=== PATIENT | male | born 1970 | race Caucasian/White ===

== ENCOUNTER 2016-09-02 11:12 | Outpatient (CLI) | payer MEDICAID | END 2016-09-02 11:13 | disposition home or self-care (01) | DX: Z13.89 Encounter for screening for other disorder (principal) ==

== ENCOUNTER 2017-01-29 15:28 | Emergency (ER) | payer MEDICAID ==
--- NOTE | 2017-01-29 15:45 | ED Physician Documentation ---
PD HPI CHEST PAIN - Stated complaint Stated Complaint: CHEST PX - Chief complaint Chief Complaint: Cardiac - History obtained from History obtained from: Patient - History of Present Illness Timing - onset: Other (46-year-old gentleman, relatively healthy with no personal or family history of early coronary disease presents with about 10 days of intermittent chest pain which has now been constant and more severe over the last 18 hours with radiation to the back since this morning. He was briefly short of breath with it, but is not currently. There is no associated nausea or sweats. He has never had this before. No recent travel, leg pain, or swelling. 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 The pain is nonexertional. Non- positional.) Review of Systems Ten Systems: 10 systems reviewed and negative Constitutional: denies: Fever, Chills Nose: denies: Rhinorrhea / runny nose, Congestion Respiratory: denies: Cough, Hemoptysis, Wheezing GI: denies: Abdominal Pain, Nausea, Vomiting : denies: Dysuria, Frequency PD PAST MEDICAL HISTORY - Past Medical History Cardiovascular: None Respiratory: Pneumonia Neuro: Headache/migraine Endocrine/Autoimmune: None GI: GERD, Pancreatitis : Kidney stones HEENT: None Psych: None Musculoskeletal: None Derm: None - Past Surgical History Past Surgical History: Yes General: Other - Present Medications Home Medications: Ambulatory Orders Medication Instructions Recorded Confirmed Famotidine [Pepcid] 20 mg PO BID #60 tablet 05/02/16 Hydrocodone/Acetaminophen 1 - 2 each PO Q6H PRN #14 tablet 05/02/16 [Hydrocodon-Acetaminophen 5-325] - Allergies Allergies/Adverse Reactions: Allergies Allergy/AdvReac Type Severity Reaction Status Date / Time metoclopramide HCl * AdvReac Severe Hallucinati Verified 05/02/16 10:04 [From Reglan] ons Tetanus Vaccines and Toxoid AdvReac Severe Edema Verified 05/02/16 10:04 [Tetanus Vaccines & Toxoid] - Social History Does the pt smoke?: Yes Smoking Status: Current every day smoker Does the pt drink ETOH?: No Does the pt have substance abuse?: No - Family History Family history: reports: Non contributory. denies: CAD - Immunizations Immunizations are current?: Yes - POLST Patient has POLST: No PD ED PE NORMAL - Vitals Vital signs reviewed: Yes - General General: Alert and oriented X 3, No acute distress - HEENT HEENT: PERRL, EOMI - Neck Neck: Supple, no meningeal sign, No bony TTP - Cardiac Cardiac: RRR, No murmur, Strong equal pulses (radial) - Respiratory Respiratory: No respiratory distress, Clear bilaterally - Abdomen Abdomen: Soft, Non tender - Back Back: No CVA TTP, No spinal TTP - Derm Derm: Normal color, Warm and dry - Extremities Extremities: No edema, No calf tenderness / cord - Neuro Neuro: Alert and oriented X 3, Normal speech - Psych Psych: Normal mood, Normal affect Results - Vitals Vitals: Vital Signs - 24 hr 01/29/17 15:33 Temperature 36.5 C Heart Rate 97 Respiratory 20 Rate Blood Pressure 173/110 H O2 Saturation 100 Oxygen O2 Source Room air - EKG (time done) 1535 Rate: Rate (enter#) (91) Rhythm: NSR [place]: Normal Intervals: Normal OK QRS: Normal Ischemia: Normal ST segments Computer interpretation: Agree with computer - Labs Labs: Laboratory Tests 01/29/17 01/29/17 01/29/17 15:50 15:50 15:50 WBC 7.6 RBC 5.04 Hgb 15.2 Hct 44.2 MCV 87.7 MCH 30.2 MCHC 34.5 RDW 13.4 Plt Count 289 MPV 7.2 L Neut # 4.2 Lymph # 2.6 [place] # 0.4 Eos # 0.3 Baso # 0.1 Absolute Nucleated RBC 0.00 Nucleated RBCs 0.0 Sodium 137 Potassium 3.5 Chloride 101 Carbon Dioxide 23 Anion Gap 13.0 BUN 12 Creatinine 0.9 Estimated GFR (MDRD) 92 Glucose 101 H Calcium 9.5 Total Bilirubin 1.6 H AST 47 H ALT 53 Alkaline Phosphatase 56 Troponin I < 0.04 Total Protein 8.3 H Albumin 5.0 Globulin 3.3 Albumin/Globulin Ratio 1.5 Lipase 30 - Rads (name of study) Ct Angio chest Radiology: EMP read contemporaneously (NAD save fatty liver) PD MEDICAL DECISION MAKING - ED course ED course: 46-year-old gentleman with chest pain radiating to the back, constant for greater than 12 hours a single troponin should be predictive given nonischemic EKG and otherwise atypical story. CT angiogram done given hypertension and radiation to the back without findings with the exception of a fatty liver, and mild liver enzyme abnormalities were seen on labs as well. He does not drink alcohol. Follow-up was advised. Departure - Departure Disposition: 01 Home, Self Care Clinical Impression: Chest pain Qualifiers: Chest pain type: unspecified Qualified Code(s): R07.9 - Chest pain, unspecified Condition: Good Record reviewed to determine appropriate education?: Yes Instructions: ED Chest Pain NonCardiac Comments: Call your doctor to arrange a follow-up appointment, make the next available appointment. In the interim, return anytime if worse or if new symptoms develop. Your blood pressure was elevated today on check into the emergency department. This does not mean that you have hypertension, it is a common phenomenon to come to the emergency department and have elevated blood pressure. I recommend that she see her primary care physician within the week to have it rechecked when you are feeling better.
[2017-01-29] MEDS ORDERED: HYDROmorphone 1 MG/ML SYRINGE IVP STA (15:53)
[2017-01-29] MEDS ORDERED: SODIUM CHLORIDE FLUSH 0.9% 10 ML SYRINGE IVP ONE (16:08)
[2017-01-29] MEDS ORDERED: HYDROmorphone 1 MG/ML SYRINGE ONE (16:08)
[2017-01-29 16:10] LABS: BASOPHILS # (AUTO) 0.1 10^3/uL (0.0-0.1); BASOPHILS % (AUTO) 1.2 %; EOSINOPHILS # (AUTO) 0.3 10^3/uL (0.0-0.7); EOSINOPHILS % (AUTO) 3.7 %; HCT - HEMATOCRIT 44.2 % (42.0-52.0); HGB - HEMOGLOBIN 15.2 g/dL (14.0-18.0); LYMPHOCYTES # (AUTO) 2.6 10^3/uL (1.5-3.5); LYMPHOCYTES % (AUTO) 34.3 %; MEAN CORPUSCULAR HEMOGLOBIN 30.2 pg (27.0-31.0); MEAN CORPUSCULAR HGB CONC 34.5 g/dL (32.0-36.0); MEAN CORPUSCULAR VOLUME 87.7 fL (80.0-94.0); MEAN PLATELET VOLUME 7.2 fL (7.4-11.4); MONOCYTES # (AUTO) 0.4 10^3/uL (0.0-1.0); MONOCYTES % (AUTO) 5.8 %; NEUTROPHILS # (AUTO) 4.2 10^3/uL (1.5-6.6); RED BLOOD COUNT 5.04 10^6/uL (4.70-6.10); RED CELL DISTRIBUTION WIDTH 13.4 % (12.0-15.0); UNCORRECTED WHITE BLOOD COUNT 7.6 x10^3/uL; WHITE BLOOD COUNT 7.6 x10^3/uL (4.8-10.8)
[2017-01-29 16:29] LABS: ALBUMIN/GLOBULIN RATIO 1.5 (1.0-2.2); BILIRUBIN,TOTAL 1.6 mg/dL (0.2-1.0); CALCIUM 9.5 mg/dL (8.5-10.3); CREATININE 0.9 mg/dL (0.6-1.2); POTASSIUM 3.5 mmol/L (3.5-5.0); TOTAL PROTEIN 8.3 g/dL (6.7-8.2)
[2017-01-29] MEDS ORDERED: IOPAMIDOL-300 100 ML VIAL IVP ONE (16:37)
--- NOTE | 2017-01-29 17:02 | CT Preliminary Report ---
Exam: CT Chest Angio (AORTA) IMPRESSION: 1. Normal chest CT angiogram. No aneurysm or dissection. 2. Hepatic steatosis. [facility] SITE ID: [id number]
--- NOTE | 2017-01-29 17:05 | CT Report ---
EXAM: CTA CHEST EXAM DATE: 01/29/2017 04:37 PM. CLINICAL HISTORY: Chest/back pain.. COMPARISON: None. TECHNIQUE: Prior to and following intravenous administration of 100 mL Isovue 300, multiplanar 3D/MIP reconstruction of the thoracic aorta was performed. In accordance with CT protocol optimization, one or more of the following dose reduction techniques w ere utilized for this exam: automated exposure control, adjustment of mA and/or KV based on patient s ize, or use of iterative reconstructive technique. FINDINGS: Vascular Structures: Normal. No aneurysm, dissection, or significant atherosclerotic disease of the t horacic aorta. The visualized pulmonary arteries are within normal limits. Lungs/Pleura: No consolidation, nodules, or edema. No effusions or pneumothorax. Mediastinum: Normal. No cardiac enlargement or adenopathy. Upper Abdomen: The liver is low in attenuation consistent with hepatic steatosis. Other: None. IMPRESSION: 1. Normal chest CT angiogram. No aneurysm or dissection. 2. Hepatic steatosis. [facility] Referring Provider Line: [phone] SITE ID: [id number]
[2017-01-29 17:42] VITALS: BP 140/93
== END 2017-01-29 17:44 | disposition home or self-care (01) ==
LOC: ED 15:28
DX: R07.9 Chest pain, unspecified (principal); R03.0 Elevated blood-pressure reading, without diagnosis of hypertension; K21.9 Gastro-esophageal reflux disease without esophagitis; Z87.442 Personal history of urinary calculi; F17.200 Nicotine dependence, unspecified, uncomplicated
CPT/HCPCS: 36415; 71275; 80053; 83690; 84484; 85025; 93005; 96374; 99284; J1170; Q9967

== ENCOUNTER 2017-08-15 08:00 | Outpatient (CLI) | payer MEDICAID ==
[2017-08-15 19:27] LABS: BASOPHILS % (AUTO) 0.9 %; EOSINOPHILS % (AUTO) 2.9 %; HGB - HEMOGLOBIN 12.6 g/dL (14.0-18.0); LYMPHOCYTES % (AUTO) 16.5 %; MEAN CORPUSCULAR HEMOGLOBIN 29.7 pg (27.0-31.0); MEAN CORPUSCULAR HGB CONC 32.5 g/dL (32.0-36.0); MEAN CORPUSCULAR VOLUME 91.3 fL (80.0-94.0); MEAN PLATELET VOLUME 7.1 fL (7.4-11.4); MONOCYTES % (AUTO) 6.5 %; NEUTROPHILS % (AUTO) 73.2 %; PLT - PLATELET COUNT 577 10^3/uL (130-450); RED BLOOD COUNT 4.26 10^6/uL (4.70-6.10); RED CELL DISTRIBUTION WIDTH 13.9 % (12.0-15.0); WHITE BLOOD COUNT 11.1 x10^3/uL (4.8-10.8)
[2017-08-15 19:37] LABS: ALBUMIN 3.7 g/dL (3.2-5.5); ALKALINE PHOSPHATASE 61 IU/L (42-121); ALT ALANINE AMINOTRANSFERASE 104 IU/L (10-60); AST ASPARTATE AMINOTRANSFERASE 48 IU/L (10-42); BILIRUBIN,TOTAL 0.5 mg/dL (0.2-1.0); BUN - BLOOD UREA NITROGEN 12 mg/dL (6-20); CALCIUM 9.1 mg/dL (8.5-10.3); CARBON DIOXIDE - CO2 25 mmol/L (21-32); CHLORIDE 104 mmol/L (101-111); CHOL/HDL RATIO 10.3 (<5.0); CHOLESTEROL 238 mg/dL; CREATININE 0.9 mg/dL (0.6-1.2); GFR - MDRD 91 (>89); GLUCOSE 101 mg/dL (70-100); HDL CHOLESTEROL 23 mg/dL; LDL CHOLESTEROL,CALCULATED 174 mg/dL; LDL/HDL RATIO 7.6 (<3.6); LIPASE 23 U/L (22-51); SODIUM 139 mmol/L (135-145); TOTAL PROTEIN 7.4 g/dL (6.7-8.2); VLDL CHOLESTEROL 41 mg/dL
[2017-08-15 19:40] LABS: ABNORMAL LYMPHS % (MANUAL) 0 %
[2017-08-15 19:54] LABS: HEMOGLOBIN A1C 0.51 g/dL; HEMOGLOBIN A1C % 5.5 % (4.6-6.2)
[2017-08-15 20:50] LABS: BAND NEUTROPHILS % (MANUAL) 4 %; EOSINOPHILS # (MANUAL) 0.2 10^3/uL (0-0.7); LYMPHOCYTES % (MANUAL) 16 %; MONOCYTES # (MANUAL) 0.7 10^3/uL (0.0-1.0); NEUTROPHILS # (MANUAL) 8.2 10^3/uL (1.5-6.6); NEUTROPHILS % (MANUAL) 70 %; PLATELET ESTIMATE, MANUAL INCREASED (>450,000) (NORMAL); PLATELET MORPHOLOGY NORMAL APPEARANCE (NORMAL); RBC MORPHOLOGY (MULTIPLE) NORMAL APPEARANCE (NORMAL)
[2017-08-15 20:51] LABS: DIFFERENTIAL COMMENT MANUAL DIFFERENTIAL
== END 2017-08-15 23:59 | disposition home or self-care (01) ==
LOC: LAB.WCP 08:00
PROVIDERS: ATTEND Family Medicine
DX: K85.01 Idiopathic acute pancreatitis with uninfected necrosis (principal); E87.1 Hypo-osmolality and hyponatremia
CPT/HCPCS: 36415; 80053; 80061; 83036; 83690; 83721; 85025

== ENCOUNTER 2017-08-29 08:00 | Outpatient (CLI) | payer MEDICAID ==
[2017-08-30 13:46] LABS: HIV AG/AB 4TH GEN NON-REACTIVE (NON-REACTIVE)
[2017-09-02 12:56] LABS: HSV 1 IGG TYPE SPECIFIC AB <0.90 index
== END 2017-08-29 08:01 | disposition home or self-care (01) ==
LOC: LAB.WCP 08:00
PROVIDERS: ATTEND Family Medicine
DX: Z11.3 Encounter for screening for infections with a predominantly sexual mode of transmission (principal)
CPT/HCPCS: 36415; 81599; 86592; 86695; 86696; 87070; 87205; 87389; 87491; 87591

== ENCOUNTER 2019-07-15 11:56 | Outpatient (CLI) | payer MEDICAID, OTHER ==
[2019-07-15 19:09] LABS: HB2 TOTAL 14.9 g/dL; HEMOGLOBIN A1C 0.52 g/dL; HEMOGLOBIN A1C % 5.3 % (4.6-6.2)
[2019-07-15 19:37] LABS: ALBUMIN 4.4 g/dL (3.2-5.5); ALBUMIN/GLOBULIN RATIO 1.5 (1.0-2.2); ALKALINE PHOSPHATASE 57 IU/L (42-121); ALT ALANINE AMINOTRANSFERASE 36 IU/L (10-60); AST ASPARTATE AMINOTRANSFERASE 30 IU/L (10-42); BILIRUBIN,TOTAL 0.5 mg/dL (0.2-1.0); BUN - BLOOD UREA NITROGEN 17 mg/dL (6-20); CALCIUM 9.2 mg/dL (8.5-10.3); CARBON DIOXIDE - CO2 25 mmol/L (21-32); CHLORIDE 100 mmol/L (101-111); CHOL/HDL RATIO 6.5 (<5.0); CHOLESTEROL 267 mg/dL; GFR - MDRD 80 (>89); GLUCOSE 139 mg/dL (70-100); HDL CHOLESTEROL 41 mg/dL; SODIUM 136 mmol/L (135-145); TOTAL PROTEIN 7.3 g/dL (6.7-8.2)
[2019-07-15 20:05] LABS: LDL CHOLESTEROL,DIRECT 130 mg/dL; LDLD/HDL RATIO 3.2 (<3.6)
== END 2019-07-15 23:59 | disposition home or self-care (01) ==
LOC: LAB.WCP 11:56
PROVIDERS: ATTEND Physician Assistant
DX: Z01.84 Encounter for antibody response examination (principal); E78.5 Hyperlipidemia, unspecified; R73.9 Hyperglycemia, unspecified
CPT/HCPCS: 36415; 80053; 80061; 83036; 83721; 86317